=== PATIENT | female | born 1970 | race Two or more races ===

== ENCOUNTER 2019-03-09 12:13 | Emergency (ER) | payer BC ==
[~2019-03-09] VITALS: Ht 160 cm; Wt 73.0 kg
[2019-03-09 14:17] LABS: Urine Bacteria NONE SEEN /hpf (None Seen); Urine Blood Negative /uL (Negative); Urine Mucus FEW (None Seen); Urine Specific Gravity 1.023 (1.001-1.035); Urine WBC 3 /hpf (0 - 5)
[2019-03-09 15:11] VITALS: BP 99/71
[2019-03-09] MEDS ORDERED: KETOROLAC TROMETH 60MG/2ML VIAL IM ONE (15:15)
== END 2019-03-09 15:55 | disposition home or self-care (01) ==
LOC: ER 12:25
DX: N76.0 Acute vaginitis (principal); N28.1 Cyst of kidney, acquired; E11.9 Type 2 diabetes mellitus without complications; Z90.710 Acquired absence of both cervix and uterus
CPT/HCPCS: 74176; 81001; 87210; 96372; 99284; J1885

== ENCOUNTER 2019-07-09 06:41 | Emergency (ER) | payer BC ==
[~2019-07-09] VITALS: Ht 160 cm; Wt 73.0 kg
[2019-07-09 08:41] VITALS: BP 148/94
== END 2019-07-09 09:50 | disposition home or self-care (01) ==
LOC: ER 06:41
DX: H66.92 Otitis media, unspecified, left ear (principal); J06.9 Acute upper respiratory infection, unspecified; E11.9 Type 2 diabetes mellitus without complications; Z90.710 Acquired absence of both cervix and uterus
CPT/HCPCS: 71046; 82962